=== PATIENT | female | born 1960 | race Caucasian/White ===

== ENCOUNTER → 2017-10-17 12:19 | Outpatient (CLI) | payer BC ==
[2015-06-17 11:27] VITALS: BMI 48.2
[~2017-10-17 12:19] MED LIST: BAYER CHEWABLE81 MG PO; BRINTELLIX PO; BRINTELLIX10 MG PO; COLACE100 MG PO; CYCLOBENZAPRINE10 MG PO; DEMEROL50 MG PO; DICLOFENAC SODI50 MG PO; ELIQUIS2.5 MG PO; GLIPIZIDE10 MG PO; GLUCOPHAGE1000 MG PO; GLUCOTROL 5 MG T5 MG PO; HYDROCODONE-APA1 TAB PO; MULTIPLE VITAMI1 TA1 PO; MYRBETRIQ25 MG PO; MYRBETRIQ50 MG PO; PHENERGAN25 M1 PO; PROVERA10 MG PO; ZESTRIL20 MG PO; ZOCOR40 MG PO
== END | disposition home or self-care (01) ==
LOC: D.US 12:19
DX: R60.0 Localized edema (principal)

== ENCOUNTER 2018-05-29 09:25 | Emergency (ER) | payer BC ==
[~2018-05-29] VITALS: Ht 160 cm; Wt 137.7 kg
[2018-05-29 09:28] VITALS: Ht 160 cm; Wt 137.7 kg
[2018-05-29] MEDS ORDERED: NEURONTIN 300300 MG PO (09:37)
[2018-05-29] MEDS ORDERED: NORCO 10-325 TA1 TAB PO (10:57)
[2018-05-29 11:08] VITALS: BP 126/60
== END 2018-05-29 11:07 | disposition home or self-care (01) ==
LOC: D.ER 09:25
DX: S09.90XA Unspecified injury of head, initial encounter (principal); W01.0XXA Fall on same level from slipping, tripping and stumbling without subsequent striking against object, initial encounter; Y93.89 Activity, other specified; Y92.511 Restaurant or cafe as the place of occurrence of the external cause; E11.9 Type 2 diabetes mellitus without complications; B18.1 Chronic viral hepatitis B without delta-agent

== ENCOUNTER → 2018-06-11 12:38 | Outpatient (CLI) | payer BC ==
[2018-05-29 09:28] VITALS: BMI 53.7
[~2018-06-11 12:38] MED LIST changes: +NEURONTIN 300300 MG PO; +NORCO 10-325 TA1 TAB PO
== END | disposition home or self-care (01) ==
LOC: D.CT 12:38
DX: M48.37 Traumatic spondylopathy, lumbosacral region (principal)

== ENCOUNTER → 2018-06-12 13:12 | Outpatient (CLI) | payer BC ==
[2018-05-29 09:28] VITALS: BMI 53.7
== END | disposition home or self-care (01) ==
LOC: D.CT 13:12
DX: M47.897 Other spondylosis, lumbosacral region (principal)

== ENCOUNTER 2018-06-28 19:00 | Outpatient (CLI) | payer BC ==
[2018-05-29 09:28] VITALS: BMI 53.7
== END 2018-06-28 23:59 | disposition home or self-care (01) ==
LOC: D.MAMMO 19:00
DX: Z12.31 Encounter for screening mammogram for malignant neoplasm of breast (principal)

== ENCOUNTER → 2018-12-31 16:45 | Outpatient (CLI) | payer BC ==
[2018-05-29 09:28] VITALS: BMI 53.7
== END | disposition home or self-care (01) ==
LOC: D.RAD 16:45
PROVIDERS: ATTEND Family Medicine
DX: R07.9 Chest pain, unspecified (principal)

== ENCOUNTER 2019-07-01 08:00 | Outpatient (CLI) | payer BC ==
[2018-05-29 09:28] VITALS: BMI 53.7
[2019-07-04] MEDS ORDERED: LEVEMIR IN100 UNITS/ SC (11:14)
[2019-07-04] MEDS ORDERED: ZANTAC300 MG PO (11:15)
[2019-07-04] MEDS ORDERED: VITAMIN B-2100 MG PO (11:15)
== END 2019-07-01 23:59 | disposition home or self-care (01) ==
LOC: D.MAMMO 08:00
PROVIDERS: ATTEND Family Medicine
DX: Z12.31 Encounter for screening mammogram for malignant neoplasm of breast (principal)

== ENCOUNTER 2019-07-08 05:10 | Day surgery (SDC) | payer BC ==
[2019-07-04 13:03] LABS: HEMATOCRIT 42.9 % (36.0-48.0); HEMOGLOBIN 13.8 g/dL (12-16); MCH 29.9 pg (26.0-34.0); MCHC 32.2 g/dL (31.0-37.0); MCV 92.9 fL (80.0-100.0); MEAN PLATELET VOLUME 12.5 fL (7.4-10.4); RBC 4.62 10x6/uL (4.00-5.40); RDW 14.2 % (11.5-14.5); WBC 8.5 10x3/uL (4.8-10.8)
[2019-07-04 13:06] LABS: ANION GAP 7.2 mmol/L (8-16); CALCIUM 8.8 mg/dL (8.5-10.1); CARBON DIOXIDE 34.6 mmol/L (21.0-32.0); POTASSIUM - SERUM 3.8 mmol/L (3.5-5.1)
[~2019-07-08] VITALS: Ht 162.6 cm; Wt 120.2 kg
[~2019-07-08 05:10] MED LIST changes: +LEVEMIR IN100 UNITS/ SC; +VITAMIN B-2100 MG PO; +ZANTAC300 MG PO
[2019-07-08] MEDS ORDERED: NEURONTIN600 MG PO (06:05)
[2019-07-08 06:26] VITALS: BP 119/62; Ht 162.6 cm; Wt 120.2 kg
[2019-07-08] MEDS ORDERED: HYDROCODON-ACE1 EA10 PO (08:21)
--- NOTE | 2019-07-08 08:41 | NUR ---
MEETS ANESTHESIA DISCHARGE CRITERIA
--- NOTE | 2019-07-08 10:12 | NUR ---
PT DC INSTRUCTIONS REVIEWED AT THIS TIME, PT VERBALIZES UNDERSTANDING. PT IV REMOVED AT THIS TIME, INTACT, NO REDNESS OR SWELLING NOTED AT SITE.
--- NOTE | 2019-07-08 10:25 | NUR ---
NO DISTRESS NOTED AT THIS TIME. PT STATES THAT SHE IS WAITING FOR FRIEND TO COME AND VISIT.
--- NOTE | 2019-07-08 10:33 | NUR ---
PT LEAVING OPS SURGERY AT THIS TIME, NAD NOTED.
--- NOTE | 2019-07-08 12:21 | OP ---
PATIENT NAME: GLADIS ADAMES MEDICAL RECORD: [id number] :62 LOCATION:D.OPS ADMISSION DATE: SURGEON: SELINA DIAZ MD DATE OF OPERATION: 07/08/2019 PREOPERATIVE DIAGNOSIS: Carpal tunnel syndrome of the left hand. POSTOPERATIVE DIAGNOSIS: Carpal tunnel syndrome of the left hand. PROCEDURE: Carpal tunnel release. SURGEON: Selina Diaz MD RAILWAY SHUNTER: Prince Bender. INTRAOPERATIVE COMPLICATIONS: None. SUMMARY OF PATHOLOGIC FINDINGS: The patient had a tight transverse carpal ligament consistent with the preoperative physical examination as well as EMGs and NCVs. OPERATIVE SUMMARY IN DETAIL: After obtaining the appropriate preoperative orthopedic surgery consent as well as anesthetic consultation, evaluation and clearance, the patient was brought to the operating room and placed on the operating table in supine position. After the appropriate timeout was taken and agreed upon by all, the patient's left upper extremity was prepared with appropriate tourniquet. After adequate general laryngeal mask airway was administered, the patient's left arm was prepped and draped in routine sterile fashion. The arm was elevated and exsanguinated, tourniquet was inflated to 250 mmHg. An incision was made inside the fourth metacarpal ray taken down to the level of distal aspect. The transverse metacarpal ligament was identified. Very small incision was made to identify the median nerve. Under direct visualization with the median nerve protected with a [place] elevator, [place] light knife was then used for transverse carpal ligament release all the way to the proximal wrist crease. Having completed this, wound was irrigated, infiltrated with 0.25% Marcaine plain and it was then closed with 4-0 Prolene. Sterile dressings were applied. Tourniquet was deflated. The patient was awakened and taken to recovery room in stable condition. All final needle and sponge counts were correct. TRANSINT:[id number] Voice Confirmation ID: [id number] DOCUMENT ID: [id number] EMILY MURRAY, SELINA DUTTON at 1221 CC: [id number] DICTATION DATE: 07/08/19 0949 CONCERT PIANIST: 07/08/19 1132 [facility] 07/08/19 [id number] [place] [address]
== END 2019-07-08 10:35 | disposition home or self-care (01) ==
LOC: D.OPS 05:10 → D.PAN 07:30 → D.OPS 10:35
PROVIDERS: Anesthesiology; ATTEND Orthopaedic Surgery
DX: G56.02 Carpal tunnel syndrome, left upper limb (principal)

== ENCOUNTER 2019-09-09 05:45 | Day surgery (SDC) | payer BC ==
[2019-09-06 11:17] LABS: HEMATOCRIT 41.5 % (36.0-48.0); HEMOGLOBIN 13.4 g/dL (12-16); MCH 29.8 pg (26.0-34.0); MCHC 32.3 g/dL (31.0-37.0); MCV 92.2 fL (80.0-100.0); MEAN PLATELET VOLUME 11.6 fL (7.4-10.4); RBC 4.5 10x6/uL (4.00-5.40); RDW 13.5 % (11.5-14.5); WBC 8.7 10x3/uL (4.8-10.8)
[2019-09-06 11:37] LABS: ANION GAP 10.9 mmol/L (8-16); CALCIUM 9.6 mg/dL (8.5-10.1); CARBON DIOXIDE 30.2 mmol/L (21.0-32.0); CREATININE - SERUM 0.9 mg/dL (0.6-1.3); POTASSIUM - SERUM 4.1 mmol/L (3.5-5.1)
[~2019-09-09] VITALS: Ht 162.6 cm; Wt 130.2 kg
[~2019-09-09 05:45] MED LIST changes: +FAMOTIDINE10 MG PO; +HYDROCODON-ACE1 EA10 PO; +NEURONTIN600 MG PO
[2019-09-09 06:41] VITALS: BP 133/75; Ht 162.6 cm; Wt 130.2 kg
[2019-09-09] MEDS ORDERED: HYDROCODON-ACE1 EA10 PO (09:02)
--- NOTE | 2019-09-09 09:26 | NUR ---
0925 ICE CAP SUPPLIED TO HAND ADA FL DIET SERVED. SISTER AT BEDSIDE.
--- NOTE | 2019-09-09 10:35 | NUR ---
1025 PT IS DRESSED AND READY TO BE WHEELED OUT IN .
--- NOTE | 2019-09-09 13:57 | OP ---
PATIENT NAME: GLADIS ADAMES MEDICAL RECORD: [id number] :62 LOCATION:D.OPS ADMISSION DATE: SURGEON: SELINA DIAZ MD DATE OF OPERATION: 09/09/2019 PREOPERATIVE DIAGNOSES: 1. Carpal tunnel syndrome of the right hand. 2. 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 POSTOPERATIVE DIAGNOSES: 1. Carpal tunnel syndrome of the right hand. 2. 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 PROCEDURES: 1. Cubital tunnel release of the right elbow. 2. Carpal tunnel release of the right wrist. SURGEON: Selina Diaz MD ANESTHESIA: Regional with TIVA. INTRAOPERATIVE COMPLICATIONS: None. SUMMARY OF PATHOLOGIC FINDINGS: The patient did have a very tight transverse carpal ligament as well as a tight ligamentous bands around the ulnar nerve, consistent with the diagnosis of both carpal tunnel and cubital tunnel syndrome as seen on the preoperative EMGs and NCVs. OPERATIVE SUMMARY IN DETAIL: After obtaining the appropriate preoperative orthopedic surgery consents as well as anesthetic consultation, evaluation, and clearance, the patient was brought to the operating room and placed on the operating table in supine position. After adequate TIVA anesthesia was administered and the regional was checked, the tourniquet was placed about the proximal aspect of the right upper extremity. The right upper extremity was then prepped and draped in routine sterile fashion. The arm was elevated and exsanguinated, tourniquet inflated to 250 mmHg after the appropriate timeout was taken and agreed upon by all. Attention was first turned to the carpal tunnel release. Incision was made in line with the fourth metacarpal. This was taken down to the level of distal aspect. The transverse carpal ligament was identified. A small incision made in the distal aspect of the transverse carpal ligament to identify the median nerve and then the transverse carpal ligament was released in its entirety under direct visualization of the median nerve. Having completed this, the area was slightly irrigated, then closed with 4-0 Prolene in routine interrupted fashion. Attention was then turned to the medial aspect of the right elbow. Incision was made between the medial epicondyle and the olecranon tip. This was then taken down and then under direct visualization, the ulnar nerve was visualized in its entirety and it was released both distally and proximally. The most adhesive portion of it being proximally at the leash of [place]. Having completed the complete release of the ulnar nerve, it was not transferred anteriorly. It was left in its groove. The wound was then irrigated and closed with 4-0 Prolene in interrupted fashion. Sterile dressings were applied. Tourniquet was deflated. The patient was awakened. The patient was then taken back to outpatient in stable condition. All final needle and sponge counts were correct. OPERATIVE REPORT [id number] GLADIS ADAMES TRANSINT:[id number] Voice Confirmation ID: [id number] DOCUMENT ID: [id number] EMILY MURRAY, SELINA DUTTON at 1357 CC: [id number] DICTATION DATE: 09/09/19 09 [employer] PROJECT MANAGER: 09/09/19 1141 [facility] 09/09/[address] [id number]
== END 2019-09-09 10:25 | disposition home or self-care (01) ==
LOC: D.OPS 05:45 → D.PAN 13:20 → D.OPS 13:20 → D.PAN 13:30 → D.OPS 13:30
PROVIDERS: Anesthesiology; ATTEND Orthopaedic Surgery
DX: G56.01 Carpal tunnel syndrome, right upper limb (principal); G56.21 Lesion of ulnar nerve, right upper limb; M25.532 Pain in left wrist; M25.531 Pain in right wrist

== ENCOUNTER → 2021-02-09 12:05 | Outpatient (CLI) | payer BC ==
[2019-09-09 06:41] VITALS: BMI 49.4
== END | disposition home or self-care (01) ==
LOC: D.MRI 12:05
PROVIDERS: ATTEND Neurological Surgery
DX: M54.5 Low back pain (principal)